=== PATIENT | female | born 1985 | race Caucasian/White ===

== ENCOUNTER → 2019-01-02 09:40 | Outpatient (CLI) | payer OTHER, SELFPAY ==
[2019-01-02 11:49] LABS: Thyroid Stimulating Hormone 2.51 uIU/mL (0.47-4.68)
== END ==
PROVIDERS: PCP Family Medicine; Visit Provider Family Medicine
DX: E03.9 Hypothyroidism, unspecified (principal)
CPT/HCPCS: 36415; 84443

== ENCOUNTER → 2022-06-14 15:09 | Outpatient (CLI) | payer OTHER, SELFPAY ==
[2022-06-14 17:41] LABS: Hematocrit 40.1 % (36-46)
[2022-06-14 18:13] LABS: HEMOLYSIS < 15 (0-50); Iron 55 ug/dL (37-170)
[2022-06-14 18:33] LABS: Percent Iron Saturation 17 % (15-50); Total Iron Binding Capacity 318 ug/dL (265-497); Transferrin 248 mg/dL (206-381)
[2022-06-14 18:44] LABS: TSH w/ Reflex to FT4 3.19 uIU/mL (0.47-4.68)
[2022-06-14 18:47] LABS: Ferritin 102 ng/mL (6-137)
[2022-06-14 19:01] LABS: Vitamin B12 345 pg/mL (239-931)
== END ==
PROVIDERS: PCP Family Medicine; Referring Provider Physician Assistant; Visit Provider Physician Assistant
DX: R53.83 Other fatigue (principal); E03.9 Hypothyroidism, unspecified
CPT/HCPCS: 36415; 82607; 82728; 83540; 83550; 84443; 85014; 85018

== ENCOUNTER → 2024-04-12 13:10 | Outpatient (CLI) | payer OTHER, SELFPAY ==
[2024-04-12 16:05] LABS: Urine N gonorrhoeae NOT DETECTED
[2024-04-12 16:46] LABS: Urine Chlamydia NOT DETECTED
== END ==
PROVIDERS: PCP Family Medicine; Visit Provider Family Medicine
DX: Z30.430 Encounter for insertion of intrauterine contraceptive device (principal)
CPT/HCPCS: 87491; 87591